=== PATIENT | male | born 1950 | race Caucasian/White ===

== ENCOUNTER → 2017-08-21 | Outpatient (CLI) | payer MEDICARE | END | disposition home or self-care (01) | LOC: CFH 07:35 | PROVIDERS: ATTEND Internal Medicine Gastroenterology | DX: K57.90 Diverticulosis of intestine, part unspecified, without perforation or abscess without bleeding (principal); K21.9 Gastro-esophageal reflux disease without esophagitis; I25.10 Atherosclerotic heart disease of native coronary artery without angina pectoris; J43.9 Emphysema, unspecified; I10 Essential (primary) hypertension; G47.30 Sleep apnea, unspecified; M19.90 Unspecified osteoarthritis, unspecified site; R13.19 Other dysphagia; R93.3 Abnormal findings on diagnostic imaging of other parts of digestive tract; R19.4 Change in bowel habit; R52 Pain, unspecified; R73.02 Impaired glucose tolerance (oral); Z68.30 Body mass index [BMI] 30.0-30.9, adult | CPT/HCPCS: 74250 ==